=== PATIENT | female | born 1980 | race Caucasian/White ===

== ENCOUNTER 2017-10-31 03:06 | Inpatient (IN) | payer OTHER ==
[~2017-10-31] VITALS: Ht 175.3 cm; Wt 99.8 kg
[2017-10-31] MEDS ORDERED: WELLBUTRIN SR100 MG PO (03:25)
[2017-10-31] MEDS ORDERED: PROZAC10 MG PO (03:25)
[2017-10-31] MEDS ORDERED: SINGULAIR10 MG PO (03:26)
--- NOTE | 2017-10-31 06:58 | NUR ---
PATIENT ADMISSION COMPLETED. PATIENT ASSEMENT COMPLETED. PATIENT DENIES ANY PAIN OR NAUSEA AT THIS TIME. PATIENT PROVIDED WITH GALL BLADDER BOOK. NO QUESTIONS, COMMENTS, OR CONCERNS, AT THIS TIME. OREINTED TO FLOOR AND ROOM. CALL LIGHT IN REACH. IV FLUIDS RUNNING.
--- NOTE | 2017-10-31 07:41 | NUR ---
MORNING ASSESSMENT DUE. THIS RN TO BEDSIDE. PT REPORTS / PAIN THAT IS "FINE." PT DENIES NEED FOR PAIN MEDICATION. PT REPORTS OCCATIONAL NAUSEA AND DENIES NEED FOR MEDICATION. ASSESSMENT DONE. PT VISITING WITH FAMILY, BED RAILS UP. CALL LIGHT WITHIN REACH.
--- NOTE | 2017-10-31 08:11 | NUR ---
PT CALLED NURSES STATION TO REPORT FEELING NAUSEA. ZOFRAN ADMINISTERED AT THIS TIME 4MG I.V. ZOFRAN
[2017-10-31] MEDS ORDERED: PROZAC20 MG PO (08:13)
[2017-10-31] MEDS ORDERED: BUPROPION XL150 MG PO (08:14)
[2017-10-31] MEDS ORDERED: PHENTERMINE H37.5 MG PO (08:15)
--- NOTE | 2017-10-31 09:08 | NUR ---
LR BOLUS STARTED ORDERED. PT WIPING DOWN WITH CHG WIPES. CONSENT SIGNED. ABX HANGING. PRE OP CHECK LIST COMPLETE. PT BACK TO BED. FAMILY AT BEDSIDE. BED RAILS UP. CALL LIGHT WITHIN REACH.
--- NOTE | 2017-10-31 09:45 | NUR ---
PT TAKEN BY LORENA, AND KASSY RNS TO OR. REPORT GIVEN. ABX SCANNED. PT AND FAMILY STATE THEIR QUESTIONS HAVE BEEN ANSWERED.
--- NOTE | 2017-10-31 11:18 | NUR ---
10/31/17 1118 Shyanne Campo PT ARRIVES TO PACK RESPONSIVE TO STIMULI. SHE WAKES UP QUICKLY REPORTING NO PAIN AT THIS TIME. SHE EASILY FALLS BACK TO SLEEP AND BEGINS TO LIGHTLY SNORE.
[2017-10-31] MEDS ORDERED: PERCOCET 7.5-31 EACH PO (11:31)
--- NOTE | 2017-10-31 12:10 | NUR ---
PT RETURNED FROM PACU. REPORT TAKEN FROM KASSY FLORES RN. PT DENIES NAUSEA, REPORTS PAIN AT 4/10. PAIN MEDICAITON PLAN DISCUSSED. VITALS SIGNS TAKEN. ASSESSMENT DONE. MEDICATIONS GIVEN. PT TOLERATING PO FLUIDS AND PUDDING. BED RAILS UP. CALL LIGHT WITHIN REACH.
--- NOTE | 2017-10-31 13:16 | NUR ---
VITAL SIGNS DUE. THIS RN TO BEDSIDE. PT REPORTS 4/10 PAIN THAT "SEEMS TO BE GETTING BETTER." PT ASSISTED UP TO RESTROOM. VOIDS WITHOUT ISSUE. VITALS TAKEN. PT BACK TO BED. BED RAILS UP. WARM BLANKETS PROVIDED. CALL LIGHT WITHIN REACH.
--- NOTE | 2017-10-31 14:08 | NUR ---
VITALS DUE. THIS RN TO BEDSIDE. PT REPORTS CONTINUED 4/10 PAIN (SEE MAR FOR MEDICATION GIVEN). PT EATING LUNCH, DENIES NAUSEA. VITALS TAKEN. PT RESTING, AT BEDSIDE. CALL LIGHT WITHIN REACH.
--- NOTE | 2017-10-31 15:21 | NUR ---
VITALS DUE. THIS RN TO BEDSIDE. PT REPORTS / PAIN THAT IS "MUCH BETTER, I FEEL LIKE I GOT AHEAD OF THE PAIN THIS TIME." PT DENIES NASUSEA. VITALS TAKEN. PT COPY OF PICTURES REVIWED WITH PT AND FAMILY. BED RAILS UP. CALL LIGHT WITHIN REACH.
--- NOTE | 2017-10-31 16:53 | NUR ---
PT REPORTS HAVING 3/10 PAIN PT ADMINISTERED TWO TABS PERCOCET AT THIS TIME. PT SITITNG UP IN BED VISITING WITH GUEST. NO DISTRESS NOTED.
--- NOTE | 2017-10-31 17:09 | NUR ---
PATIENT UP IN BED, IN ROOM. VITALS AND I/OS CHARTED. DIETARY IN ROOM WITH DINNER. SBA WITH PATIENT TO BATHROOM. CALL LIGHT IN REACH
--- NOTE | 2017-10-31 18:50 | NUR ---
PT ARRIVED THIS AM FOR RUQ PAIN. LAP FRANCK AND UMBILICAL HERNIA REPAIR. PRN PAIN MEDICATION. PRN NAUSEA MEDICATION. MINIMAL NAUSEA TODAY. DIET ADVANCED. FAMILY AT BEDSIDE. PIV IN RODOLFO, SL. PT USING CALL LIGHT APPROPRIATLY.
--- NOTE | 2017-10-31 19:01 | NUR ---
THIS RN TO ROOM TO CHECK ON PT. PT RESTING WITH EYES CLOSED. RR = 14 BPM. MOTHER AT BED SIDE. BED RAILS UP. CALL LIGHT WITHIN REACH.
--- NOTE | 2017-10-31 19:56 | NUR ---
RECEIVED REPORT FROM DAY SHIFT. PATIENT IS RESTING IN BED VISITING WITH FAMILY. PATIENT DENIES ANY PAIN OR NAUSEA. CALL LIGHT IN REACH.
--- NOTE | 2017-10-31 20:20 | NUR ---
PATIENT HAD 25ML OF EMESIS AND COMPLAINS OF NAUSEA. NO AVAILABLE NAUSEA MEDICATION AT THIS TIME. PLACED CALL TO MD. NEW VERBAL ORDERS RECEIVED AND VERIFIED USING THE READBACK METHOD. WILL PUT NEW ORDERS INTO PLACE.
--- NOTE | 2017-10-31 20:40 | NUR ---
PATIENT GIVEN PRN NAUSEA MEDICATION PER ORDER. PATIENT GIVEN PRN TORADOL PER ORDER FOR 4/10 ABD PAIN. PATIENT ASSISTED TO THE RESTROOM A SBA. PATIENT IS STEADY ON HER FEET. PATIENT WAS ABLE TO VOID. PATIENT IS NOW BACK IN BED RESTING WITH SCDS IN PLACE. PULSE OX IN PLACE NO FURTHER NEEDS NOTED. CALL LIGHT IN REACH.
--- NOTE | 2017-10-31 21:15 | NUR ---
PATIENT ASSESMENT COMPLETED. X4 LAP SITES COVERED WITH STERI STRIPS IN PLACE, SMALL AMOUNT OF DRIED BLOOD AT SITES.
--- NOTE | 2017-10-31 21:24 | NUR ---
PATIENT ASSISTED TO SIT ON COUCH WITH HER MOTHER TO WATCH THE [employer]. PATIENT DENIES ANY NAUSEA. PATIENT RATES PAIN AT A 1/10. NO NEEDS NOTED. CALL LIGHT IN REACH.
--- NOTE | 2017-10-31 22:00 | NUR ---
VITALS AND I&OS DONE AND CHARTED. WARM BLANKET GIVEN. CALL LIGHT AND BEDSIDE TABLE WITHIN REACH.
--- NOTE | 2017-10-31 23:45 | NUR ---
PATIENT IS RESTING IN BED WITH EYES CLOSED. PULSE OX READINGS ARE WNL. PATIENTS MOTHER IS ASLEEP ON THE COUCH. CALL LIGHT IN REACH.
--- NOTE | 2017-11-01 02:21 | NUR ---
PATIENT ASSESMENT COMPLETED. PATIENTS 0200 MEDICATIONS GIVEN PER ORDER. PATIENT DENIES ANY PAIN OR NAUSEA AT THIS TIME. PRIVACY ANALYST IN ROOM TO TAKE VITALS. VITALS TAKEN AND RECORDED. ICE WATER REFILLED. NO FURTHER NEEDS NOTED. CALL LIGHT IN REACH.
--- NOTE | 2017-11-01 02:26 | NUR ---
VITALS AND I&OS DONE AND CHARTED. FRESH ICE WATER GIVEN. BEDSIDE TABLE AND CALL LIGHT WITHIN REACH.
--- NOTE | 2017-11-01 04:56 | NUR ---
PATIENT RESTED WELL THROUGHOUT THE SHIFT. PATIENT IS ON A REGULAR DIET. PATIENT IS A SBA. PATIENT IS ON A PULSE OX AND RA. PATIENT HAS SCDS IN PLACE. PATIENT IS SL AND IV FLUSHES WELL. PATIENT HAS X4 LAP SITES, STERI STRIPS PRESENT, AND SMALL DRY DRAINAGE NOTED. PATIENT RECEIVED X1 PRN TORADOL FOR ABD PAIN. PATIENT RECEIVED X1 PRN NAUSEA MEDICATION AFTER 25ML EMESIS. PATIENTS OUPUT IS QS. PATIENT IS AAOX3.
--- NOTE | 2017-11-01 06:12 | NUR ---
PATIENTS VITALS TAKEN AND RECORDED BY DIRECTOR ENVIRONMENTAL. PATIENT UP A SBA TO THE RESTROOM. PATIENT WAS ABLE TO VOID. PATIENT DENIES ANY NAUSEA. PATIENT RATES PAIN AT A 2/10. PATIENT GIVEN PRN TORADOL PER ORDER. NO FURTHER NEEDS NOTED. CALL LIGHT IN REACH.
--- NOTE | 2017-11-01 07:20 | NUR ---
BEDSIDE HANDOFF REPORT RECEIVED FROM VENEER SLICING MACHINE OPERATOR RN. PT REQUESTING TO GET DRESSED, INDEPENDENT. PT STATES PAIN TOLERABLE AT THIS TIME. PT ASKING ABOUT DISCHARGE. DISCUSSED PLAN OF CARE FOR THE DAY.
--- NOTE | 2017-11-01 08:30 | NUR ---
PT RESTING IN BED. PT REQUESTING PAIN MEDICATION, GIVEN 1 TAB PERCOCET. PT ON ROOM AIR, LUNG SOUNDS CLEAR, DENIES SOB. PT RATING PAIN 3-4/10 TO ABD, INCISIONS WITH STERISTRIPS IN PLACE, SMALL AMOUNT OF DRIED DRAINAGE, WITHOUT REDNESS. BOWEL TONES ACTIVE, DENIES NAUSEA, TOLERATING REGULAR DIET. CMS INTACT, PULSES PALPABLE. IV SALINE LOCKED, IV PEPCID GIVEN. PT INDEPENDENT IN ROOM. DISCUSSED PLAN OF CARE FOR THE DAY. PT DENIES OTHER NEEDS AT THIS TIME.
--- NOTE | 2017-11-01 08:48 | NUR ---
ASKED PATIENT IF SHE WOULD LIKE A SHOWER AND SHE SAID NO BECAUSE SHE MIGHT BE GOING HOME. ALSO BROUGHT HER A WARM BLANKET.
--- NOTE | 2017-11-01 10:13 | NUR ---
PT RESTING IN BED. PT DENIES NAUSEA. PT STATES PAIN MEDICATION WAS EFFECTIVE FOR ABD PAIN. PT ASKING ABOUT DIET, EDUCATION PROVIDED ON DIET. PT DENIES OTHER NEEDS AT THIS TIME.
--- NOTE | 2017-11-01 10:30 | NUR ---
MD TO BEDSIDE TO DISCUSS DISCHARGE. OK TO DISCHARGE TODAY. IV ANCEF GIVEN. PT DENIES OTHER NEEDS AT THIS TIME.
--- NOTE | 2017-11-01 13:37 | NUR ---
PT SITTING IN BED, DRESSED WITH CHERISE AT BEDSIDE. PT EXPRESS HER GREAT SATISFACTION WITH THE CARE SHE RECEIVED WHILE HERE AT [facility]. ED WAS [facility], MOVED HER QUICKLY TO ADMISSION AND RM IN M/S. COMPETENT CARE ALL THE WAY THROUGH, AND ALSO MENTIONED THAT HER WAS IN ED LAST MONTH AND THEY EXPERIENCED SIMILIAR RESULTS FOLLOWING COMPLICATIONS WITH A HIP REPLACEMENT. PETRA BOB IN WELL DR MENDEZ FOR DC. WILL FOLLOW NEEDED
--- NOTE | 2017-11-01 22:00 | HP ---
[facility] [address], [place] [address] Signed ADMISSION DATE: 10/31/2017 REASON FOR ADMISSION: Acute calculous cholecystitis. HISTORY OF PRESENT ILLNESS: This morbidly obese 37-year-old white woman has had over a week of episodes of right upper abdominal pain radiating into the subscapular area. Most of the episodes have been short-lived, lasting less than 4-6 hours or so. Last night at approximately 1 a.m., she was awakened with similar pain and the pain did not relent. She presented to the emergency room in obiee consultant hours and was evaluated thoroughly by Dr. Montana including a clinical examination and an ultrasound of the gallbladder, which confirmed a distended gallbladder with sludge and bits of stone. A positive sonographic Winn's sign was noted as well. She was admitted for further evaluation and care for acute calculous cholecystitis. PAST MEDICAL HISTORY: Notable for childbirth x2. Her youngest child is 7, the oldest is 9. She has had in the past. She has had breast biopsy by me in the past. ALLERGIES: Include nitrofurantoin. MEDICATIONS: At admission include Wellbutrin SR 100 mg p.o. daily, Prozac 10 mg p.o. daily, and Singulair 10 mg p.o. daily. SOCIAL HISTORY: She is . Her is a teacher. The patient is accompanied by her mother. 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 REVIEW OF SYSTEMS: She denies any shortness of breath or chest pain. She has had no dysuria or hematuria. Denies any hematemesis. Has had some vomiting with her problem. She feels somewhat thirsty currently. PHYSICAL EXAMINATION: GENERAL: Pleasant white woman accompanied by her mother. HEENT: Mucous membranes are dry. Trachea is midline. CHEST: Clear. HEART: Regular without murmur. Electronically Signed By: SEAN MENDEZ MD 11/01/17 2200 PATIENT NAME: YESI QUACH HISTORY AND PHYSICAL DATE OF : [birth year] REPORT #: [id number] PHYSICIAN: SEAN MENDEZ MD PCP: ADALID MORALES MD REPORT IS CONFIDENTIAL AND NOT TO BE RELEASED WITHOUT AUTHORIZATION [facility] [address], [place] [address] Signed ABDOMEN: Obese, but soft, easily palpated. There is mild tenderness in the right upper abdomen. There is no mass. There is no ascites. EXTREMITIES: Show no clubbing, cyanosis, or edema. LABORATORY DATA: Show a white count of 7.6, hematocrit 40.1, platelets 273,000. Chem profile is normal. Bilirubin 0.6, alkaline phosphatase 77, lipase 57. Beta HCG is negative. Urinalysis is normal. I reviewed the ultrasound images, which confirmed a distended gallbladder. I did not visualize the stones that have been reported by the radiologist, except in one view, possibly faintly. There does appear to be a layer of thickened sludge however in the gallbladder on longitudinal image. There was no sign of intrahepatic ductal dilatation. ASSESSMENT AND PLAN: The patient has acute calculous cholecystitis. I discussed the pathophysiology of this problem with the patient and her mother in detail. I would recommend additional fluids be administered. She has been started on antibiotic Ancef already. Deep vein thrombosis prophylaxis will be appropriate. I have recommended cholecystectomy preferred by laparoscopic approach today. The risks of bleeding, infection, bile duct injury, need for open procedure, need for common duct exploration, either laparoscopic or open, were all reviewed in detail. She understands and agrees to proceed. MD WILBER Livingston/MODL /[id number] cc: MD Kendra Aquino MD Copies: LEONELA PHIPPS MD Electronically Signed By: SEAN MENDEZ MD 11/01/172199 PATIENT NAME: YESI QUACH HISTORY AND PHYSICAL DATE OF : [birth year] REPORT #: [id number] PHYSICIAN: SEAN MENDEZ MD PCP: ADALID MORALES MD REPORT IS CONFIDENTIAL AND NOT TO BE RELEASED WITHOUT AUTHORIZATION [facility] [address] [place] [id number] Signed KENDRA MONTANA MD ~ Electronically Signed By: SEAN MENDEZ MD 11/01/172199 PATIENT NAME: YESI QUACH HISTORY AND PHYSICAL DATE OF : [birth year] REPORT #: [id number] PHYSICIAN: SEAN MENDEZ MD PCP: ADALID MORALES MD REPORT IS CONFIDENTIAL AND NOT TO BE RELEASED WITHOUT AUTHORIZATION
--- NOTE | 2017-11-01 22:00 | OR ---
[facility] [address], [place] [address] Signed DATE OF OPERATION: 10/31/2017 SURGEON: Sean Mendez MD PREOPERATIVE DIAGNOSES: 1. Acute calculous cholecystitis. 2. Morbid obesity. POSTOPERATIVE DIAGNOSES: 1. Acute calculous cholecystitis. 2. Morbid obesity. 3. Umbilical hernia (incarcerated properitoneal fat). PROCEDURES: 1. Laparoscopic cholecystectomy with intraoperative cholangiogram. 2. Surgeon-directed fluoroscopy. 3. Repair of umbilical hernia, separate incision. ANESTHESIA: General endotracheal, Sean Ruiz CRNA and local 20 mL of 0.25% Marcaine with epinephrine. INDICATION: This 37-year-old obese white woman is a patient of Dr. Goldstein and known to me from the past as well. She has had recurrent bouts of right upper quadrant epigastric pain over the past 2 weeks. Most dominantly, having a very severe episode this morning approximately 01:00 a.m. She presented to the emergency room where she was thoroughly evaluated by Dr. Montana, including gallbladder ultrasound, which showed a distended gallbladder, market tenderness, and gallstones. She has been admitted and given fluid resuscitation, intravenous antibiotics, parenteral pain control, and I have recommended cholecystectomy. The risks of bleeding, infection, bile duct injury, need for open procedure and other unforeseen complications including need for common duct exploration were reviewed in detail. She understands and wished to proceed. FINDINGS: The gallbladder was tense and distended, and markedly inflamed. There was no sign of gangrenous changes however. The liver had mild steatosis. The gallbladder did require decompression for safe cholecystectomy, which was accomplished laparoscopically without problem. Intraoperative cholangiogram was normal as well. The gallbladder had several small mulberry yellow gallstones and acute inflammation of mucosa. Electronically Signed By: SEAN MENDEZ MD 11/01/17 2200 PATIENT NAME: YESI QUACH OPERATIVE REPORT DATE OF : [birth year] REPORT #: [id number] PHYSICIAN: SEAN MENDEZ MD PCP: ADALID MORALES MD REPORT IS CONFIDENTIAL AND NOT TO BE RELEASED WITHOUT AUTHORIZATION [facility] [address] [place], [place] [address] Signed Additionally noted was an incarcerated umbilical hernia at the base of the umbilicus with herniated properitoneal fat. The properitoneal fat was excised and the hernia defect repaired separate and distinct from the operative incision for laparoscopy. This was accomplished with running PDS suture and mesh was not implanted. DESCRIPTION OF PROCEDURE: The patient was brought to the operating room, given a general endotracheal anesthetic. Preoperative antibiotic Ancef was given. Sequential compression device stockings used and heparin subcutaneously administered by the websphere developer. The abdomen was prepared with a chlorhexidine solution and draped sterilely. Abdominal wall obesity was considerable. An infraumbilical incision was made and using an open Florencio cannula technique, the abdomen was entered. A pneumoperitoneum achieved to a level of 14 mmHg with carbon dioxide gas. Intraabdominal inspection shows no sign of ascites or carcinomatosis. The gallbladder was tensed and distended and acutely inflamed. The liver had mild fatty infiltration. Three additional trocars were placed in usual configuration in the subxiphoid, right midclavicular, and right anterior axillary line. The gallbladder was tensed and distended and could not easily be grasped on that basis. Decompression was undertaken with a laparoscopic trocar device. This allowed for the puncture site to be grasped and the gallbladder elevated cephalad. Retraction of the infundibulum laterally allowed for blunt and electrocautery dissection. The common duct was easily identified and no dissection occurred in that area at all. Ultimately, the cystic duct was well dissected and a clip applied across the gallbladder cystic duct junction. A transverse choledochotomy was made in the cystic duct and retrograde milking of the cystic duct showed clear bile. Using an Cuello type cholangiocatheter kit, intraoperative cholangiography was undertaken showing free flow of contrast in biliary tree with prompt emptying into the duodenum. Conventional anatomy was noted. There was no sign of filling defect or other abnormality. The cholangiocatheter was removed and the cystic duct was triply clipped and divided and the gallbladder dissected free in a retrograde fashion using electrocautery. The gallbladder was placed in an endobag and extracted through the infraumbilical port site without problem, opened on the back table and found to have several small mulberry yellow gallstones and acute inflammation of mucosa. Irrigation was undertaken in the subhepatic space. There was no sign of ongoing bleeding. An area of discontinuous bed of the gallbladder was filled with some Jose hemostatic agent, though there was no active and ongoing bleeding. Excess irrigation fluid was suctioned free. The trocars were removed under direct visualization showing no sign of bleeding. Palpation within the umbilicus showed a separate distinct fascial defect at the umbilicus itself. Further dissection of the soft tissue revealed herniated properitoneal fat. This was quite well incarcerated in the defect. This was excised Electronically Signed By: SEAN MENDEZ MD 11/01/17 8478 PATIENT NAME: YESI QUACH OPERATIVE REPORT DATE OF : [birth year] REPORT #: [id number] PHYSICIAN: SEAN MENDEZ MD PCP: ADALID MORALES MD REPORT IS CONFIDENTIAL AND NOT TO BE RELEASED WITHOUT AUTHORIZATION [facility] [address] [place] [place] [address] Signed with electrocautery. This fascial defect was closed with a running #1 PDS suture. The laparoscopic fascial defect was closed with interrupted 0 Vicryl suture. All wounds were copiously irrigated with saline solution and injected with Marcaine 0.25% with epinephrine. The skin was closed with interrupted 3-0 Vicryl. Steri-Strips were applied. The patient was ultimately extubated and transferred to recovery room in good condition having suffered no complication. Sponge, needle, and instrument counts reported as correct x3. MD WILBER Livingston/MODL /[id number] cc: MD Mckenzie Newsome MD Copies: KENDRA MONTANA MD, PATRICIA J MD ~ Electronically Signed By: SEAN MENDEZ MD 11/01/17 2200 PATIENT NAME: YESI QUACH OPERATIVE REPORT DATE OF : 80 REPORT #: [id number] PHYSICIAN: SEAN MENDEZ MD PCP: ADAILD MORALES MD REPORT IS CONFIDENTIAL AND NOT TO BE RELEASED WITHOUT AUTHORIZATION
== END 2017-11-01 11:10 | disposition home or self-care (01) | DRG 418 ==
LOC: ED 03:06 → MS 03:07
PROVIDERS: ADMIT Surgery
PROC: BF101ZZ Fluoroscopy of Bile Ducts using Low Osmolar Contrast (ICD-10-PCS; 2017-10-31)
PROC: 0FT44ZZ Resection of Gallbladder, Percutaneous Endoscopic Approach (ICD-10-PCS; principal; 2017-10-31 09:37)
PROC: 0WQF0ZZ Repair Abdominal Wall, Open Approach (ICD-10-PCS; 2017-10-31 09:37)
DX: K80.00 Calculus of gallbladder with acute cholecystitis without obstruction (principal); K42.0 Umbilical hernia with obstruction, without gangrene; F41.9 Anxiety disorder, unspecified; E66.9 Obesity, unspecified; K76.0 Fatty (change of) liver, not elsewhere classified; Z68.32 Body mass index [BMI] 32.0-32.9, adult; Z79.899 Other long term (current) drug therapy; Z88.1 Allergy status to other antibiotic agents
CPT/HCPCS: 74300; 76705; 80053; 81001; 83690; 84703; 85025; 94762; 96361; 96374; 96375; 96376; 99285; G0378; J0330; J0690; J1100; J1170; J1644; J1885; J2250; J2270; J2405; J2550; J2704; J2765; J3010; J7030; J7120; Q9967